=== PATIENT | female | born 2000 | race Caucasian/White ===

== ENCOUNTER 2018-05-15 22:48 | Emergency (ER) | payer OTHER ==
[~2018-05-15] VITALS: Ht 170.2 cm; Wt 65.9 kg
[2018-05-15 22:55] VITALS: TEMP 96.9
[2018-05-15 23:25] LABS: COLLECTION METHOD CLEAN CATCH
[2018-05-15 23:27] LABS: BASO % 0.5 % (0.0-2.0); EOS # 0.2 (0.0-0.7); EOS % 2.4 % (0-4.0); GRAN # 2.9 (1.4-6.5); GRAN % 47.2 % (42.2-75.2); HEMOGLOBIN 14.1 g/dl (12.0-15.0); LYMPH # 2.5 (1.2-3.4); LYMPH % 40.7 % (20.0-51.0); MEAN CELL VOLUME 87 fl (80.0-95.0); MEAN CORPUSCULAR HEMOGLOBIN 29 pg (26.0-32.0); MEAN CORPUSCULAR HGB CONC 34 g/dl (33.0-37.0); MEAN PLATELET VOLUME 11.1 fl (7.4-10.4); MONO # 0.6 (0.1-0.6); PLATELET COUNT 269 K/mm3 (130-400); RED BLOOD COUNT 4.85 M/mm3 (4.10-5.30); REDCELL DISTRIBUTION WIDTH-CV 12.8 % (11.5-14.5)
[2018-05-15 23:36] LABS: MUCOUS Present /lpf; PH 5 (5-8); SQUAMOUS EPITHELIAL 0-2 /hpf; URINE APPEARANCE Hazy; URINE BACTERIA None Seen /hpf; URINE BILIRUBIN Negative (NEGATIVE); URINE BLOOD 3+ (NEGATIVE); URINE COLOR Yellow; URINE GLUCOSE Negative (NEGATIVE); URINE KETONE Negative (NEGATIVE); URINE LEUKOCYTE ESTERASE Negative (NEGATIVE); URINE NITRATE Negative (NEGATIVE); URINE PROTEIN(semi-quant) 1+ (NEGATIVE); URINE RBC >50 /hpf; URINE UROBILINOGEN >=4.0 mg/dL (NEGATIVE)
[2018-05-15 23:41] LABS: ALANINE AMINOTRANSFERASE 51 U/L (9-52); ALBUMIN 4.9 gm/dL (3.5-5.0); ALKALINE PHOSPHATASE 81 U/L (50-136); ANION GAP 11 mmol/L (7-16); AST,SGOT 33 U/L (15-37); BILIRUBIN,TOTAL 0.4 mg/dL (0.0-1.0); BLOOD UREA NITROGEN 13 mg/dL (7-17); CALCIUM 9.6 mg/dL (8.4-10.2); CARBON DIOXIDE 26 mmol/L (22-30); CHLORIDE 106 mmol/L (98-107); CREATININE, serum 0.67 mg/dL (0.52-1.25); GLUCOSE 121 mg/dL (74-106); POTASSIUM 3.7 mmol/L (3.4-5.0); SODIUM 142 mmol/L (137-145); TOTAL PROTEIN 8.5 gm/dL (6.4-8.2)
[2018-05-15 23:42] LABS: C-REACTIVE PROTEIN < 0.5 mg/dL (0.0-0.9)
[2018-05-15 23:59] LABS: HCG,QUANTITATIVE < 2 mIU/mL (0-5)
[2018-05-16 01:05] VITALS: BP 108/66; PULSE 72
== END 2018-05-16 01:05 | disposition home or self-care (01) ==
LOC: COL.ER 22:48
PROVIDERS: Physician Assistant
DX: R10.2 Pelvic and perineal pain (principal); N93.9 Abnormal uterine and vaginal bleeding, unspecified
CPT/HCPCS: J7030

== ENCOUNTER 2019-07-03 08:32 | Emergency (ER) | payer OTHER ==
[~2019-07-03] VITALS: Ht 170.2 cm; Wt 72.7 kg
[2019-07-03 08:49] VITALS: TEMP 98.4
[2019-07-03 09:13] LABS: BASO % 0.3 % (0.0-2.0); EOS # 0.1 (0.0-0.7); EOS % 0.5 % (0-4.0); GRAN # 8.4 (1.4-6.5); GRAN % 81.7 % (42.2-75.2); HEMATOCRIT 39.7 % (37.0-47.0); HEMOGLOBIN 13.4 g/dl (12.5-16.0); LYMPH # 1.2 (1.2-3.4); LYMPH % 12.1 % (20.0-51.0); MEAN CELL VOLUME 85 fl (80.0-100.0); MEAN CORPUSCULAR HEMOGLOBIN 29 pg (27.0-31.0); MEAN CORPUSCULAR HGB CONC 34 g/dl (33.0-37.0); MEAN PLATELET VOLUME 11.3 fl (7.4-10.4); MONO # 0.5 (0.1-0.6); MONO % 4.9 % (1.7-9.3); PLATELET COUNT 236 K/mm3 (130-400); RED BLOOD COUNT 4.65 M/mm3 (4.10-5.30); REDCELL DISTRIBUTION WIDTH-CV 13.1 % (11.5-14.5)
[2019-07-03 09:28] LABS: COLLECTION METHOD CLEAN CATCH
[2019-07-03 09:34] LABS: ALANINE AMINOTRANSFERASE 37 U/L (9-52); ALBUMIN 4.8 gm/dL (3.5-5.0); ALKALINE PHOSPHATASE 82 U/L (50-136); ANION GAP 14 mmol/L (7-16); AST,SGOT 34 U/L (15-37); BILIRUBIN,TOTAL 0.4 mg/dL (0.0-1.0); BLOOD UREA NITROGEN 16 mg/dL (7-17); CALCIUM 9.6 mg/dL (8.4-10.2); CARBON DIOXIDE 23 mmol/L (22-30); CHLORIDE 105 mmol/L (98-107); CREATININE, serum 0.89 (0.52-1.25); GLUCOSE 131 mg/dL (74-106); LIPASE 117 U/L (23-300); POTASSIUM 3.7 mmol/L (3.4-5.0); SODIUM 142 mmol/L (137-145); TOTAL PROTEIN 8.2 gm/dL (6.4-8.2)
[2019-07-03 09:38] LABS: C-REACTIVE PROTEIN < 0.5 mg/dL (0.0-0.9)
[2019-07-03 09:38] LABS: MUCOUS Present /lpf; PH 6 (5-8); URINE APPEARANCE Hazy; URINE BACTERIA Rare /hpf; URINE BILIRUBIN Negative (NEGATIVE); URINE BLOOD 2+ (NEGATIVE); URINE COLOR Yellow; URINE GLUCOSE Negative (NEGATIVE); URINE KETONE Negative (NEGATIVE); URINE LEUKOCYTE ESTERASE Negative (NEGATIVE); URINE NITRATE Negative (NEGATIVE); URINE PROTEIN(semi-quant) Negative (NEGATIVE); URINE UROBILINOGEN Negative (NEGATIVE)
[2019-07-03] MEDS ORDERED: NORCO 325 MG-51 TAB PO (10:36)
[2019-07-03] MEDS ORDERED: ZOFRAN ODT4 MG PO (10:36)
[2019-07-03 11:34] VITALS: BP 104/61; PULSE 86
== END 2019-07-03 11:34 | disposition home or self-care (01) ==
LOC: COL.ER 08:32
PROVIDERS: Physician Assistant
DX: N20.2 Calculus of kidney with calculus of ureter (principal)
CPT/HCPCS: J1885; J2270; J2405; J7030; Q9967

== ENCOUNTER → 2020-01-09 | Outpatient (CLI) | payer OTHER ==
[~2020-01-09] MED LIST: NORCO 325 MG-51 TAB PO; ZOFRAN ODT4 MG PO
== END ==
LOC: ZCOL.LAB 12:56
DX: J02.9 Acute pharyngitis, unspecified (principal); Z20.828 Contact with and (suspected) exposure to other viral communicable diseases

== ENCOUNTER → 2020-05-06 | Outpatient (CLI) | payer BC | LOC: COL.RAD 09:28 | DX: R10.11 Right upper quadrant pain (principal) ==

== ENCOUNTER 2020-09-15 05:22 | Outpatient (CLI) | payer OTHER ==
[~2020-09-15] VITALS: Ht 170.2 cm; Wt 97.7 kg
--- NOTE | 2020-09-15 05:30 | NUR ---
Pt arrived on unit escorted with and with complaints of a headache. Pt reports she took 1000mg of tylenol at 0330 with no relief and increased nausea and feeling lightheaded. Pt denies any contractions, leaking of fluid and reports normal movement. EFM and toco monitor started. Vital signs WNL. Information reviewed with Dr. Peck. Orders for serial BPs and labs CBC, CMP and clean catch UA received. Information reviewed with pt and at the bedside.
[2020-09-15 06:10] VITALS: BP 119/77; PULSE 82; TEMP 97.8
[2020-09-15 06:39] LABS: HEMOGLOBIN 10.6 g/dl (12.5-16.0); MEAN CELL VOLUME 79 fl (80.0-100.0); MEAN CORPUSCULAR HEMOGLOBIN 24 pg (27.0-31.0); MEAN CORPUSCULAR HGB CONC 31 g/dl (33.0-37.0); PLATELET COUNT 246 K/mm3 (130-400); RED BLOOD COUNT 4.39 M/mm3 (4.10-5.30); REDCELL DISTRIBUTION WIDTH-CV 14.5 % (11.5-14.5)
[2020-09-15 06:40] VITALS: BP 119/76; PULSE 85
[2020-09-15 06:53] LABS: COLLECTION METHOD CLEAN CATCH
[2020-09-15 06:53] LABS: HEMATOCRIT 34.6 % (37.0-47.0)
[2020-09-15 06:54] LABS: BILIRUBIN,TOTAL 0.5 mg/dL (0.0-1.0); CALCIUM 9.4 mg/dL (8.4-10.2); CREATININE, serum 0.55 (0.52-1.25); POTASSIUM 4.3 mmol/L (3.4-5.0); TOTAL PROTEIN 7.6 gm/dL (6.4-8.2)
[2020-09-15 07:06] LABS: MUCOUS Present /lpf; PH 6 (5-8); SQUAMOUS EPITHELIAL 0-2 /hpf; URINE APPEARANCE Hazy; URINE BACTERIA None Seen /hpf; URINE BILIRUBIN Negative (NEGATIVE); URINE BLOOD Negative (NEGATIVE); URINE COLOR Yellow; URINE GLUCOSE 3+ (NEGATIVE); URINE KETONE Negative (NEGATIVE); URINE LEUKOCYTE ESTERASE Negative (NEGATIVE); URINE NITRATE Negative (NEGATIVE); URINE PROTEIN(semi-quant) 1+ (NEGATIVE); URINE UROBILINOGEN Negative (NEGATIVE)
[2020-09-15 07:10] VITALS: BP 115/71; PULSE 78
[2020-09-15 07:40] VITALS: BP 125/80; PULSE 92
--- NOTE | 2020-09-15 07:50 | NUR ---
0740- EFM and TOCO off. Discharge plan explained, labor precautions given. Informed Pt to call office tomorrow, 09/16/2020, to start 24hr urine collection. Pt denies questions and verbalizes understanding. Pt up to change into street clothes. 0750- Discharge paperwork given and explained. Pt ambulates off unit with in stable condition.
[2020-09-15 08:58] LABS: ANISOCYTOSIS 1+; BAND 6 % (0-10); EOSINOPHIL 1 % (0-4); HYPOCHROMIA 1+; LYMPHOCYTE 12 % (20.0-51.0); NEUTROPHILS 71 % (42.0-75.2); PLATELET ESTIMATE NORMAL (NORMAL)
== END 2020-09-15 07:50 | disposition home or self-care (01) ==
LOC: LDRO 05:22 → LDR 06:11 → LDRO 07:50
PROVIDERS: Student in an Organized Health Care Education/Training Program
DX: O99.891 Other specified diseases and conditions complicating pregnancy (principal); Z3A.37 37 weeks gestation of pregnancy
CPT/HCPCS: OP

== ENCOUNTER 2020-10-01 01:12 | Outpatient (CLI) | payer OTHER ==
[~2020-10-01] VITALS: Ht 170.2 cm; Wt 98.6 kg
--- NOTE | 2020-10-01 01:25 | NUR ---
0125- PATIENT AMBULATORY TO OUR UNIT WITH SPOUSE BY HER SIDE. ORIENTATED TO ROOM AND CHANGED INTO CLEAN GOWN. REPORTS HAVING CONTRACTIONS EVERY 5 MINUTES FOR THE LAST 2 HOURS THAT ARE GETTING MORE INTENSE. DENIES LOF, BLEEDING AND REPORTS GFM. 0127- EFM AND TOCO ON AND TRACING. VITALS TAKEN, ASSESSMENT COMPLETED. 0135- SVE /-2. DISCUSSED PLAN OF CARE. DENIES NEEDS. CALL LIGHT WITHIN REACH.
[2020-10-01 02:44] VITALS: BP 127/84; PULSE 98; TEMP 98.7
[2020-10-02] MEDS ORDERED: MOTRIN 800800 MG/TAB PO (08:23)
== END 2020-10-01 02:50 | disposition home or self-care (01) ==
LOC: LDRO 01:12
DX: O62.9 Abnormality of forces of labor, unspecified (principal); Z3A.40 40 weeks gestation of pregnancy

== ENCOUNTER 2020-10-01 07:12 | Inpatient (IN) | payer OTHER, MEDICAID ==
[2020-10-01] VITALS (21 sets, daily range): BP systolic 108–153; BP diastolic 55–85; PULSE 77–120; TEMP 98.1–98.8
[~2020-10-01] VITALS: Ht 170.2 cm; Wt 98.6 kg
--- NOTE | 2020-10-01 07:20 | NUR ---
Pt arrives on unit ambulatory with spouse. States SROM or clear fluid at 0645. Ctx q 2-3 minutes. Rates pain /10. Denies vaginal bleeding and reports GFM. Changed into clean gown. EFM and toco applied. VSS. Amniotest positive. SVE per this RN /-1. Dr. Wilson notified. LM with circulating nurse at [facility]. Verbalized will start IV and begin abx for GBS+. Updated on Moderate variability with one deceleration into the 100s that resolved spontaneously. IV started in LH. Labs drawn. IVF and abx infusing. Admission assessment completed. Consents signed. Pt updated on POC. Bed locked in low position. Call light within reach. No questions or concerns at this time.
[2020-10-01 08:04] LABS: BASO % 0.2 % (0.0-2.0); EOS % 0.3 % (0-4.0); GRAN # 9.1 (1.4-6.5); GRAN % 74.8 % (42.2-75.2); HEMOGLOBIN 10.7 g/dl (12.5-16.0); LYMPH # 1.9 (1.2-3.4); LYMPH % 15.6 % (20.0-51.0); MEAN CELL VOLUME 78 fl (80.0-100.0); MEAN CORPUSCULAR HEMOGLOBIN 24 pg (27.0-31.0); MEAN CORPUSCULAR HGB CONC 31 g/dl (33.0-37.0); MEAN PLATELET VOLUME 11.1 fl (7.4-10.4); MONO % 7.9 % (1.7-9.3); PLATELET COUNT 251 K/mm3 (130-400); RED BLOOD COUNT 4.48 M/mm3 (4.10-5.30); REDCELL DISTRIBUTION WIDTH-CV 15.7 % (11.5-14.5)
[2020-10-01 08:07] LABS: HEMATOCRIT 35.1 % (37.0-47.0)
--- NOTE | 2020-10-01 08:40 | NUR ---
Pt sitting upright for epidural placement. Difficulty tracing FHR due to maternal position. RN at bedside adjusting monitors. FHR audible.
--- NOTE | 2020-10-01 11:15 | NUR ---
SVE per this RN C/+1. Pt coached on pushing. Practice push performed. Moves vertex well. Dr. Wilson on unit for c/s. Updated on pt progress. Requested to room after procedure. 1125-Dr. Wilson at bedside. Discusses late decelerations and recommends VAVD with decelerations. Pt agrees to POC. 1129-Vacuum applied. Pt begins pushing. Moves vertex well. 1131-VAVD of viable male infant attended by Dr. Wilson. Cord clamped x 2 and cut from umbilicus. Infant dried and placed on mother's abdomen. Care of infant to Jairo Madsen RN. Apgars . 1135- of placenta. Pitocin bolus infusing per protocol. Fundus firm at umbilicus. Bleeding WNL. Pericare performed. Ice pack applied. Pt updated on POC. Bed locked in low position. Call light within reach. No questions or concerns at this time. 1205-Heart sized clot noted with fundal massage. No free flow noted. Dr. Wilson on unit. Updated on pt status. Order to continue to monitor. Call if methergine is needed.
[2020-10-02 03:00] VITALS: BP 133/69; PULSE 105; TEMP 98.6
[2020-10-02 07:00] VITALS: BP 114/71; PULSE 98; TEMP 97.7
[2020-10-02] MEDS ORDERED: MOTRIN 800800 MG/TAB PO (08:23)
--- NOTE | 2020-10-02 09:41 | NUR ---
Initial visit; Parents thanked [employer] for offering congratulations and God's blessings for the of their son. [employer] Operator thanked family for choosing [facility] .
[2020-10-02 10:57] VITALS: BP 130/79; PULSE 99; TEMP 97.9
[2020-10-02 16:00] VITALS: BP 107/63; PULSE 90; TEMP 97.7
[2020-10-02 20:00] VITALS: BP 125/91; PULSE 110; TEMP 97.6
[2020-10-03 04:00] VITALS: BP 119/68; PULSE 89; TEMP 98.6
--- NOTE | 2020-10-03 06:45 | NUR ---
Baby fussy in nursery. Took baby in to patients room. Encouraged to feed baby.
[2020-10-03 07:30] VITALS: BP 120/69; PULSE 87; TEMP 98.2
--- NOTE | 2020-10-03 11:45 | NUR ---
Rests in bed, alert. Border status instructions given, verbalizes understanding. Discharged, alert, stable.
== END 2020-10-03 11:45 | disposition home or self-care (01) | DRG 807 ==
LOC: LDRO 07:12 → LDR 07:46 → OB 07:46
PROVIDERS: ADMIT Obstetrics & Gynecology
PROC: 10D07Z6 Extraction of Products of Conception, Vacuum, Via Natural or Artificial Opening (ICD-10-PCS; principal; 2020-10-01)
PROC: 0KQM0ZZ Repair Perineum Muscle, Open Approach (ICD-10-PCS; 2020-10-01)
DX: O48.0 Post-term pregnancy (principal); Z37.0 Single live birth; O99.824 Streptococcus B carrier state complicating childbirth; O76 Abnormality in fetal heart rate and rhythm complicating labor and delivery; O70.1 Second degree perineal laceration during delivery; Z3A.40 40 weeks gestation of pregnancy
CPT/HCPCS: J2540; J2590; J2795; J7120